=== PATIENT | male | born 1995 | race Caucasian/White ===

== ENCOUNTER → 2018-10-19 | Emergency (ER) | payer SELFPAY | LOC: ED 21:42 | DX: Z53.21 Procedure and treatment not carried out due to patient leaving prior to being seen by health care provider (principal) ==

== ENCOUNTER 2018-11-10 01:13 | Emergency (ER) | payer MEDICAID ==
[2018-11-10 01:37] VITALS: O2SAT 99
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
[2018-11-10] MEDS ORDERED: TORAdol 30 mg Injection ONE (01:51)
[2018-11-10] MEDS ORDERED: TORAdol 30 mg Injection IM ONE (01:53)
[2018-11-10] MEDS ORDERED: NORCO 5/325 MG PO ONE (02:13)
[2018-11-10] MEDS ORDERED: NORCO 5/325 MG ONE (02:19)
[2018-11-10 02:42] VITALS: BP 110/67; PULSE 69
== END 2018-11-10 02:41 | disposition home or self-care (01) ==
LOC: ED 01:13
DX: S62.306A Unspecified fracture of fifth metacarpal bone, right hand, initial encounter for closed fracture (principal); Y04.0XXA Assault by unarmed brawl or fight, initial encounter
CPT/HCPCS: 96372; 99284; A4570; J1885; A9270-GY

== ENCOUNTER 2018-11-29 21:07 | Emergency (ER) | payer MEDICAID ==
[2018-11-29 21:25] VITALS: O2SAT 98
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
[2018-11-29 22:08] LABS: BASOPHIL % 0.4 % (0.0-0.4); Basophil (Absolute #) 0.02 (0-0.4); Eosinophil % 2.5 % (0.00-5.0); Eosinophil (Absolute #) 0.13 (0-0.5); Granulocyte Absolute (ANC) 3.48 (1.4-6.9); Granulocytes % 67.6 % (36.0-66.0); Hematocrit 42.2 % (42-50); Hemoglobin 14.4 gm/dl (12.5-18.0); Lymphocyte (Absolute #) 1.02 (1.0-4.6); Lymphocytes % 19.8 % (24.0-44.0); Mean Cell Volume 90.9 fl (78-100); Mean Corpuscular Hgb Concent. 34.1 g/dl (32-36); Mean Platelet Volume 9.7 fl (6-9.5); Monocytes % 9.7 % (0.0-12.0); Platelet Count 200 K/mm3 (150-450); Red Blood Count 4.64 M/mm3 (4.1-5.6); Red Cell Distribution Width 12.3 % (11.5-14.0); White Blood Count 5.2 K/mm3 (4.0-10.5)
[2018-11-29 22:19] LABS: ACETAMINOPHEN < 10 ug/ml (10-30); ALBUMIN 4.6 g/dL (3.5-5.0); ALKALINE PHOSPHATASE 56 U/L (38-126); ANION GAP 12.3 MEQ/L (5-15); BLOOD UREA NITROGEN 14 mg/dL (9-20); CHLORIDE 109 mmol/L (98-107); Calcium 9.8 mg/dL (8.4-10.2); Carbon Dioxide 27 mmol/L (22-30); Creatinine 1 1.14 mg/dL (0.66-1.25); ETHYL ALCOHOL < 10 mg/dL (0-10); Glucose 109 mg/dL (74-106); Potassium 4.5 mmol/L (3.5-5.1); SALICYLATE < 1.0 mg/dL (2-20); SGOT/AST 21 U/L (17-59); SGPT/ALT 18 U/L (0-50); SODIUM 143 mmol/L (137-145); Total Protein 7.4 g/dL (6.3-8.2)
[2018-11-29 23:42] LABS: Appearance SLIGHTLY CLOUDY (CLEAR); Bilirubin NEGATIVE (NEGATIVE); Blood NEGATIVE Ery/ul (0-5); Glucose NEGATIVE (NEGATIVE); Ketones NEGATIVE (NEGATIVE); Leukocyte Esterase NEGATIVE (NEGATIVE); Mucus SLIGHT /HPF (NEGATIVE); Nitrite NEGATIVE (NEGATIVE); Protein,Urine Dip NEGATIVE (Negative); Urobilinogen 2 mg/dL (0-1)
[2018-11-29] MEDS ORDERED: Ativan 1 MG PO ONE (23:48)
[2018-11-29] MEDS ORDERED: Ativan 1 MG ONE (23:49)
[2018-11-29 23:55] LABS: Amphetamine,Urine NEGATIVE (NEGATIVE); Barbiturate,Urine NEGATIVE (NEGATIVE); Benzodiazepine,Urine NEGATIVE (NEGATIVE); Cocaine,Urine NEGATIVE (NEGATIVE); Methadone,Urine NEGATIVE (NEGATIVE); Opiate,Urine NEGATIVE (NEGATIVE); PCP,Urine NEGATIVE (NEGATIVE); THC,Urine NEGATIVE (NEGATIVE)
[2018-11-30 00:46] VITALS: BP 103/60
[2018-11-30] MEDS ORDERED: BACTRIM DS TABLET PO STA (01:01)
[2018-11-30] MEDS ORDERED: BACTRIM DS TABLET PO ONE (01:02)
[2018-11-30 02:07] VITALS: PULSE 70
== END 2018-11-30 03:05 | disposition short-term general hospital (02) ==
LOC: EEVIPCON 21:07 → ED 21:07
DX: F32.9 Major depressive disorder, single episode, unspecified (principal); R45.851 Suicidal ideations
CPT/HCPCS: 36415; 80053; 80307; 81001; 84484; 85025; 93005; 99285; G0481; A9270-GY; G0480

== ENCOUNTER 2018-12-24 17:04 | Emergency (ER) | payer MEDICAID | END 2018-12-24 18:35 | disposition left against medical advice (07) | LOC: ED 17:04 ==